=== PATIENT | male | born 1995 | race Caucasian/White ===

== ENCOUNTER 2016-11-05 17:55 | Emergency (ER) | payer OTHER ==
[~2016-11-05 17:55] MED LIST: ALBUTEROL MININEB NEB; ALBUTEROL17 GM; ALBUTEROL17 GM INH; BACTRIM DS TABL1 TA1 PO; BENADRYL25 MG PO; CLARITIN10 MG PO; IBS MED; MOTRIN600 MG; MULTIVITAMIN1 UDCAP PO; PREDNISONE50 MG PO; PROVENTIL; ROBAXIN500 MG; SINGULAIR; SINGULAIR PO; SINGULAIR4 MG; SINGULAIR4 MG PO; SYMBICORT; SYMBICORT80; SYMBICORT80 INH; ZITHROMAX PO; ZOFRAN ODT4 MG DOB; ZYRTEC10 M2 PO; [UNRECOGNIZED DRUG - REMARK]
[2016-11-05 18:19] LABS: BASOPHIL# 0.1 X10e3 (0-0.3); BASOPHIL% 0.7 % (0-2.5); EOSINOPHIL# 0.2 X10e3 (0-0.7); EOSINOPHIL% 1.4 % (0.0-7.0); HEMATOCRIT 45.2 % (38.0-50.0); HEMOGLOBIN 15.5 gm/dL (13.0-16.0); LYMPHOCYTE# 2.1 X10e3 (1.0-3.5); LYMPHOCYTE% 16.2 % (17.0-45.0); MEAN CELL VOLUME 84.8 FL (83-96); MEAN CORPUSCULAR HEMOGLOBIN 29.1 PG (28-34); MEAN CORPUSCULAR HGB CONC 34.3 g/dL (30-36); MEAN PLATELET VOLUME 8.1 FL (6.5-11.5); MONOCYTE# 1.2 X10e3 (0-1.0); MONOCYTE% 9.3 % (3.0-12.0); NEUTROPHIL# 9.4 X10e3 (1.5-7.1); NEUTROPHIL% 72.4 % (40-75); PLATELET COUNT 213 X10e3 (140-420); RED BLOOD COUNT 5.33 X10e (3.90-5.60); RED CELL DISTRIBUTION WIDTH 14.1 % (11.0-15.5)
[2016-11-05 18:24] LABS: DIFF IND NO
[2016-11-05 18:37] LABS: ALBUMIN SERUM 4.2 g/dL (3.5-5.0); BILIRUBIN, DIRECT 0.2 mg/dL (0.0-0.2); BILIRUBIN,INDIRECT 0.5 mg/dL (0.0-0.9); BILIRUBIN,TOTAL 0.7 mg/dL (0.2-2.0); BUN/CREATININE RATIO 12.85; CALCIUM SERUM 9.1 mg/dL (8.4-10.2); CREATININE SERUM 0.7 mg/dL (0.6-1.4); GLOM FILT RATE Estimated 135.9 mL/min (>60); POTASSIUM 3.8 mmol/L (3.5-5.1); PROTEIN TOTAL SERUM 7.4 g/dL (6.0-8.3)
== END 2016-11-05 20:17 | disposition home or self-care (01) ==
LOC: SED 17:55
PROVIDERS: Emergency Medicine
DX: R19.7 Diarrhea, unspecified (principal); R11.2 Nausea with vomiting, unspecified; R10.9 Unspecified abdominal pain; K21.9 Gastro-esophageal reflux disease without esophagitis; J45.909 Unspecified asthma, uncomplicated; F17.210 Nicotine dependence, cigarettes, uncomplicated
CPT/HCPCS: 80048; 80076; 83690; 85025; 96361; 96372; 96374; 96375; 99284; J0500; J2405